=== PATIENT | male | born 1930 | race Caucasian/White ===

== ENCOUNTER 2017-01-27 09:02 | Observation (INO) ==
[2017-01-27] MEDS ORDERED: ASPIRIN PO STA (09:13)
[2017-01-27] MEDS ORDERED: DUONEB (A & A) INH ONE (09:30)
[2017-01-27 10:25] LABS: MANUAL DIFF NEEDED? NO
[2017-01-27 10:30] LABS: BASO% 0.3 % (0.0-0.8); EOS# 0.15 X1000 (0.0-0.7); HEMATOCRIT 35.1 % (42.0-52.0); HEMOGLOBIN 11.5 g/dL (14.0-18.0); IMM GRAN# 0.09 X1000 (0.0-0.04); IMM GRAN% 0.6 % (0.0-0.5); LYMPH# 0.95 X1000 (1.2-3.4); LYMPH% 6.3 % (20.5-51.1); MCH 31.2 PG (27-31); MCHC 32.8 g/dL (33-37); MCV 95.1 FL (81-99); MONO# 1.02 X1000 (0.11-0.59); MONO% 6.8 % (1.7-9.3); MPV 10.8 FL (7.4-10.4); PLT 236 X1000 (130-400); RBC 3.69 XMIL (4.7-6.1)
[2017-01-27] MEDS ORDERED: LASIX IV ONE ×2 (10:35→14:43)
[2017-01-27 10:42] LABS: INR 0.98; PROTIME 10.3 Seconds (9.2-11.7); PTT 24.4 Seconds (22.0-36.0)
[2017-01-27 11:16] LABS: AGAP 15; ALBUMIN 3.5 g/dL (3.5-5.0); ALKALINE PHOSPHATASE 45 U/L (32-122); BUN 18 mg/dL (8-22); CALCIUM 8.5 mg/dL (8.8-10.2); CHLORIDE 96 mmol/L (98-107); COSMO 276; GOT 24 U/L (10-34); GPT 20 U/L (10-44); MAGNESIUM 1.5 mg/dL (1.5-2.7); POTASSIUM 4.1 mmol/L (3.5-5.1); SODIUM 137 mmol/L (136-145); TCO2 26 mmol/L (25-35); TOTAL BILIRUBIN 0.59 mg/dL (0.20-1.00); TOTAL PROTEIN 6.5 g/dL (6.3-8.3)
--- NOTE | 2017-01-27 11:24 | Diag Imaging Result Document ---
PROCEDURE NAME: CHEST-2 VIEWS - 01/27/2017 FRONTAL AND LATERAL CHEST, 2 VIEWS: FINDINGS: Compared to 07/18/2016. The lungs are hyperexpanded. Mild increased AP diameter to the chest. The heart is not enlarged. The vessels are not distended. No pleural effusions. Vascular prominent versus tiny infiltrate in the medial right base. I believe this truly represents the vessels as the appearance has changed little from the prior exam. There is moderate scoliosis. IMPRESSION: Emphysema.
[2017-01-27 11:26] LABS: CK PROFILE 462 U/L (24-204)
[2017-01-27 12:07] LABS: CK INDEX 2.9 (0.0-2.5); CK-MB 13.61 ng/mL (0.0-5.0)
[2017-01-27] MEDS ORDERED: KLOR-CON PO ONE (14:43)
[2017-01-27] MEDS ORDERED: TYLENOL PO PRN (16:36)
[2017-01-27] MEDS ORDERED: DUONEB (A & A) INH SCH (19:30)
--- NOTE | 2017-01-27 19:46 | HISTORY AND PHYSICAL ---
CHIEF COMPLAINT: Shortness of breath. HISTORY OF PRESENT ILLNESS: This 86-year-old white male presents to the emergency room unannounced. States he has been having increasing shortness of breath with minimal exertion for the past several days. The patient relates has been coughing up some thick, green sputum and his oxygen saturation was low at home. The patient came to the emergency room and was found to have an oxygen saturation of 88% on room air. Subsequent workup revealed a chest x-ray more consistent with congestive heart failure, as well as lower extremity edema. He did have an elevated white count. Although he responded to diuresis in the emergency room, he was still short of breath enough to warrant admission. In review the history, the patient states that he had been on a bus trip all week with his yazidism and as a result he had quit taking his Lasix because he did not want to have to urinate on the bus all of the time. PAST MEDICAL HISTORY: 1. Hypertension. 2. Type 2 diabetes on oral hypoglycemic agent. 3. COPD with reactive airway. 4. Gastroesophageal reflux disease. 5. Hyperlipidemia. 6. History of colon polyps. 7. Obesity. 8. Edema. PAST SURGICAL HISTORY: 1. Multiple back surgeries. 2. Infrarenal abdominal aortic aneurysm with graft. 3. Appendectomy. 4. Multiple spinal epidural procedures. SOCIAL HISTORY: The patient is and lives with his . He is a former smoker with 40 pack year history. He is retired. He does not use alcohol. FAMILY HISTORY: Significant for stomach cancer and stroke. REVIEW OF SYSTEMS: Please see history of present illness. The patient states that over the course of the week he developed great difficulty even walking short distances due to shortness of breath. He felt that he was wheezing as well. He does not describe any symptoms consistent with orthopnea. He feels his abdomen is distended as well. He has not had any nausea or vomiting. He has had a mild to moderate cough productive of greenish sputum. He also has similar mucus coming out of his nose. He denied any chest pain or palpitations. He has noted increased swelling in his lower extremities. He has noted no difficulty urinating. His bowel movements have been normal. PHYSICAL EXAMINATION: GENERAL: He is a well-developed, white male, who is moderately tachypneic but alert, oriented, conversive, and appropriate. NECK: Exam does not reveal JVD in the semirecumbent position. HEENT: Sclerae are anicteric. Oral mucosa is adequately hydrated. LUNGS: Show bilateral mild crackles in the bases with some mild end-expiratory wheeze and fair air movement. As stated earlier, he is mild to moderately tachypneic. ABDOMEN: Protuberant and difficult to examine. It appears to have gaseous distention rather than just fluid retention but it is difficult to tell based on his positioning in the bed. GENITOURINARY: Exam unremarkable. EXTREMITIES: He had 2+ edema up to the level of the knee with deep indentations where his socks hit in the mid tibial area. NEUROLOGIC: Cranial nerves are intact. Patient shows no focal motor deficits on observation. LABORATORY: White cell count was 15,000, hematocrit 35.1. BUN 18, creatinine 1.0, glucose 105. Creatine kinase was 462. Troponin was negative. ProBNP was 699. Chest x-ray: The patient's chest x-ray was reviewed and compared to a previous film from July 2016. I really did not see that much difference but it did appear to be consistent with a fluid overload state rather than acute pneumonia. ASSESSMENT AND PLAN: 1. The patient be admitted to the floor. He has already diuresed 1500 mL in the ER but still somewhat short of breath. I plan to give him a 2nd dose of Lasix this afternoon and then let him rest tonight on oxygen. Tomorrow morning I will consult Dr. Tushar Isaac and get another echocardiogram. His last echo was in 2013 and was a somewhat technically limited study but appeared to have a normal ejection fraction with no enlargement of the chambers. He did have borderline pulmonary hypertension on that echo. As far as I am aware, he has not had any ischemic studies. 2. Because of the patient's history of chronic obstructive pulmonary disease and the likelihood of potential exacerbation, I am going to cover him with antibiotics as if he had a community- acquired bronchopneumonia. We will continue with albuterol aerosols and oxygen support. 3. The remainder of home medications will remain as they were previously. I plan to supplement his potassium today and tomorrow as well. cc: Martell Leiva MD
[2017-01-27] MEDS: DOXYCYCLINE PO SCH (20:45)
[2017-01-27] MEDS: RESTORIL PO PRN (22:31)
--- NOTE | 2017-01-28 05:37 | EKG Report ---
Test Performed on : 01/27/2017 09:11:00 AM Test Reason : Chest Pain Blood Pressure : / mmHG Vent. Rate : 078 BPM Atrial Rate : 078 BPM P-R Int : 184 ms QRS Dur : 084 ms QT Int : 374 ms P-R-T Axes : 055 046 046 degrees QTc Int : 426 ms Sinus rhythm. with premature supraventricular complexes. Nonspecific ST abnormality Abnormal ECG No previous ECGs available Unconfirmed Result
[2017-01-28 07:08] LABS: MANUAL DIFF NEEDED? NO
[2017-01-28 07:23] LABS: BASO% 0.4 % (0.0-0.8); EOS# 0.37 X1000 (0.0-0.7); EOS% 3.6 % (0.0-10.0); HEMATOCRIT 34.5 % (42.0-52.0); HEMOGLOBIN 11.3 g/dL (14.0-18.0); IMM GRAN# 0.07 X1000 (0.0-0.04); IMM GRAN% 0.7 % (0.0-0.5); LYMPH# 0.92 X1000 (1.2-3.4); LYMPH% 8.9 % (20.5-51.1); MCHC 32.8 g/dL (33-37); MCV 94.5 FL (81-99); MONO# 0.95 X1000 (0.11-0.59); MONO% 9.2 % (1.7-9.3); MPV 10.6 FL (7.4-10.4); NEUT% 77.2 % (42.2-75.2); PLT 226 X1000 (130-400); RBC 3.65 XMIL (4.7-6.1)
[2017-01-28 07:52] LABS: AGAP 10; BUN 20 mg/dL (8-22); CALCIUM 8.8 mg/dL (8.8-10.2); CHLORIDE 99 mmol/L (98-107); COSMO 284; POTASSIUM 4.1 mmol/L (3.5-5.1); SODIUM 141 mmol/L (136-145); TCO2 32 mmol/L (25-35)
[2017-01-28] MEDS: KLOR-CON PO SCH (10:17)
[2017-01-28] MEDS: DOXYCYCLINE PO SCH ×2 (10:18→20:43)
[2017-01-28] MEDS: LASIX IV SCH (10:18)
[2017-01-28] MEDS: ROCEPHIN 1 GM/NS 1 GM/50 ML IVPB IV SCH (10:19)
[2017-01-28] MEDS ORDERED: SOLU-MEDROL IV ONE (10:29)
--- NOTE | 2017-01-28 12:29 | CONSULTATION ---
DATE OF CONSULTATION: 01/28/2017 REQUESTING PHYSICIAN: Martell Leiva MD REASON FOR CONSULTATION: CHF and wheezing. HISTORY OF PRESENT ILLNESS: Mr. Cuevas is a pleasant 86-year-old male, patient of mine, who presented to the Emergency Room yesterday with the history that he had been out of town and he had left about a week ago on the on a bus heading to [place] where he spent 5 days and came back on 01/25/2017. During those 5 days out of town he did not take his Lasix. He also ate outside and he ate a lot of salty foods. On 01/26/2017, he noted that he was swollen and he was short of breath. He decided to come to the Emergency Room. In the E.R. he was evaluated by physicians and they did a proBNP level that was slightly elevated at 699; normal is 450. One troponin level was done and it was negative. A chest x-ray showed evidence of emphysema. The patient was actively wheezing. He was put on beta agonist and also Lasix. He has diuresed quite a bit. He is feeling much better today, 01/28/2017. His recorded weight in the hospital is 196. At my office when I saw him last time it was also 196 on 12/06/2016. The patient denies having any chest pain. He is still wheezing some. PAST MEDICAL HISTORY: His past history is positive for COPD. We had noted this back in 2013. He has been referred to Dr. Grant who has followed him. He has established the diagnosis of COPD. He is on inhalers. He does have a history of hypertension. He has hyperlipidemia and diabetes mellitus type 2. He has had a recent dobutamine myocardial perfusion stress test done on 10/26/2014 that was negative for ischemia. The patient has had a previous abdominal aortic aneurysm repair. He has gastric reflux. He has hyperlipidemia which is being treated. PAST SURGICAL HISTORY: His surgical history besides the abdominal aneurysm repair includes back surgery. SOCIAL HISTORY: He is . He has children. He is retired. He used to be a smoker. FAMILY HISTORY: Noncontributory. MEDICATIONS: Home medications at this time include the following: Omeprazole 20 mg daily, Flomax 0.4 mg daily, pravastatin 40 mg daily, metformin 500 mg twice a day, furosemide 40 mg daily, Anoro Ellipta inhaler daily, fluticasone inhaler daily, losartan 50 mg daily, albuterol inhaler several times a day, diltiazem 120 mg daily, and azithromycin as directed. ALLERGIES: Negative. REVIEW OF SYSTEMS: Positive for weight gain, dyspnea, wheezes, and back pain. No other important positives. PHYSICAL EXAMINATION: VITAL SIGNS: Blood pressure is 134/71, temperature 98.2, pulse 63, and respirations 15. GENERAL: He is awake, alert, oriented, and in no distress. HEENT: Unremarkable. CHEST: Bilateral wheezes. Diminished breath sounds diffusely. There are end expiratory wheezes noted most audible at the upper lobes. CARDIOVASCULAR: Heart sounds are distant and regular. No gallop or murmur. ABDOMEN: Nontender and soft. No masses. No hepatomegaly. EXTREMITIES: The extremities show decreased pulses. There is 1 to 2+ edema bilaterally. NEUROLOGICAL: He follows commands and moves all extremities. LABORATORY DATA: Blood work today shows a sodium of 141, potassium 4.1, BUN 20, creatinine 1.1, chloride 99, and carbon dioxide 32. Electrocardiogram done at 9:11 a.m. on 01/27/2017 showed sinus rhythm, PVCs, and no acute ischemic changes. IMPRESSION: 1. Patient presenting with increasing dyspnea and findings consistent with exacerbation of chronic obstructive pulmonary disease and also with some degree of fluid retention that raises the concern for diastolic heart failure. The patient has had previous imaging studies of the heart that have shown consistently that his ejection fraction was preserved. This morning they did an echocardiogram and the preliminary report indicates that his ejection fraction is within normal range. 2. History of abdominal aortic aneurysm repair. 3. History of diabetes. 4. History of hypertension. 5. History of being a former smoker. RECOMMENDATIONS: At this point in time I agree with giving him Lasix. I also suggest to treat him as a COPD exacerbation including steroids, beta agonist, and see how he does. I discussed this with Dr. Leiva and with the patient and his and they understand. The patient is anxious about going home right away. I suggested to him to be a little more patent and try to stick around for the next day or two. He will see Dr. Leiva later on today and discuss this. cc: MD Martell Lane MD
--- NOTE | 2017-01-28 16:27 | ECHO REPORT ---
ORDER DATE: 01/28/2017 ECHOCARDIOGRAPHIC MEASUREMENTS: 1. Interventricular septum 1. 2. Left ventricular posterior wall 1. 3. Diastolic diameter 5.3. 4. Left atrium 3.4. 5. Aorta 4. FINDINGS: 1. Normal left ventricular cavity size. Estimated ejection fraction of 60%. Aortic valve leaflets are trileaflet. Mitral valve was normal. Tricuspid valve was normal. Pulmonic valve was normal. 2. Peak velocity across the aortic valve less than 2 meters/second. There is no aortic stenosis. There is aortic sclerosis. 3. There is mild aortic regurgitation. 4. There is mild mitral regurgitation. 5. There is mild tricuspid regurgitation. 6. Peak velocity across the tricuspid valve was 2.9 meters/second. Pulmonary systolic pressure of 43 mmHg. There is trace pulmonary regurgitation. 7. There is no pericardial effusion or obvious intracardiac mass or thrombus seen. cc: MD Martell Cohen MD
[2017-01-28] MEDS: SOLU-MEDROL IV SCH (17:32)
[2017-01-28] MEDS: RESTORIL PO PRN (20:43)
[2017-01-28] MEDS ORDERED: DUONEB (A & A) INH SCH (21:00)
[2017-01-28] MEDS ORDERED: FLOMAX PO SCH (21:00)
[2017-01-28] MEDS ORDERED: PRAVACHOL PO SCH (21:00)
[2017-01-29] MEDS: SOLU-MEDROL IV SCH (00:11)
--- NOTE | 2017-01-29 04:27 | PROGRESS NOTE ---
DATE: 01/28/2017 SUBJECTIVE: The patient states he is breathing much better today. He has diuresed quite a bit overnight. Overall, since coming to the emergency room, he was diuresed somewhere in the neighborhood of 2500 mL but this has not been kept accurately between the emergency room and the floor. I checked the patient down an echocardiogram lab and he was in no distress. OBJECTIVE: Vital Signs: The patient is afebrile. Vital signs are stable. Extremities: The extremities show 1+ edema. Lungs: Lungs have bilateral end-expiratory wheezes with slight increased work of breathing, with no effects of respiratory distress. Cardiovascular: Regular without appreciable murmur or gallop. Abdomen: Protuberant. Neurologic: The patient is alert, oriented, conversive, and appropriate. LABORATORIES: White cell count is 10.3, potassium is 4.1, creatinine 1.1. Echocardiogram with 60% ejection fraction. No significant valvular abnormalities. Normal chamber sizes. ASSESSMENT AND PLAN: 1. The patient's shortness of breath is multifactorial. He clearly has chronic obstructive pulmonary disease and is likely in an exacerbation now. This was made considerably worse by his fluid overload status and skipping his Lasix doses. He has diuresed sufficiently overnight. Still continues to have wheezing. Dr. Tushar Isaac suggestive that at the present his primary component was chronic obstructive pulmonary disease and suggested that we add steroids. By the time of this dictation, the patient had received a dose of steroids and was feeling somewhat better. His breathing has stabilized and he is again very desirous on going home, but I do not feel that he had been on a regimen on a regimen that can be maintained at home. We increased his respiratory treatments to 3 times a day. We will continue his Lasix at present dose. 2. He is being discharged tomorrow. cc: Martell Leiva MD
[2017-01-29 08:00] VITALS: BP 154/96
[2017-01-29] MEDS ORDERED: GLUCOPHAGE PO SCH (08:00)
[2017-01-29] MEDS: DOXYCYCLINE PO SCH (08:44)
[2017-01-29] MEDS: KLOR-CON PO SCH (08:46)
[2017-01-29] MEDS: LASIX IV SCH (08:50)
[2017-01-29] MEDS: ROCEPHIN 1 GM/NS 1 GM/50 ML IVPB IV SCH ×2 (08:51→09:14)
[2017-01-29] MEDS ORDERED: COZAAR PO SCH (09:00)
[2017-01-29] MEDS ORDERED: PREDNISONE PO SCH (09:00)
[2017-01-29] MEDS ORDERED: CARDIZEM CD PO SCH (09:00)
[2017-01-29] MEDS ORDERED: PRILOSEC PO SCH (09:00)
--- NOTE | 2017-01-30 00:55 | DISCHARGE SUMMARY ---
ADMISSION DATE: 01/27/2017 DISCHARGE DATE: 01/29/2017 DISCHARGE DIAGNOSES: 1. Chronic obstructive pulmonary disease, with exacerbation. 2. Acute congestive heart failure, diastolic. 3. Edema. 4. Medical noncompliance. 5. [id number] diabetes mellitus, E11.9. 6. Hypertension. CONSULTATIONS: Tushar Isaac MD. PROCEDURES: Echocardiography. HOSPITAL COURSE: The patient was admitted for fluid overload status and wheezing. He had been noncompliant for the previous week due to a bus trip. He was markedly swollen and short of breath. After large volume diuresis on day 1, he continued to have wheezing, which was more consistent with his COPD. He was started on some steroids and seemed to clear up greatly. He was breathing much better by the time of discharge. At the time of discharge, the only changes in medications were the addition of 20 mg of prednisone daily until he could follow up with me within 1 week. He was also strongly encouraged to take his Lasix 40 every day. We discussed weight loss as well. Followup is within 1 week. During his hospitalization, the patient had an echocardiogram, which showed preserved ejection fraction and chamber sizes. He had mild diastolic dysfunction. cc: Martell Leiva MD
== END 2017-01-29 09:28 | disposition home or self-care (01) ==
LOC: ED 09:02 → 3N 15:44 → INTOOBSV 15:44
PROVIDERS: ADMIT Internal Medicine; ATTEND Internal Medicine

== ENCOUNTER 2017-03-05 09:48 | Inpatient (IN) ==
--- NOTE | 2017-03-05 10:24 | EKG Report ---
Test Performed on : 03/05/2017 10:05:32 AM Test Reason : sob Blood Pressure : / mmHG Vent. Rate : 090 BPM Atrial Rate : 090 BPM P-R Int : 162 ms QRS Dur : 086 ms QT Int : 344 ms P-R-T Axes : 108 047 064 degrees QTc Int : 420 ms Normal sinus rhythm. Nonspecific ST abnormality Abnormal ECG When compared with ECG of 27-JAN-2017 09:11, premature supraventricular complexes. are no longer present Unconfirmed Result
--- NOTE | 2017-03-05 11:46 | Diag Imaging Result Doc PS360 ---
EXAM: CHEST-PORTABLE HISTORY: sob TECHNIQUE: COMPARISON: 01/27/2017 FINDINGS: The lungs are well expanded. The heart is not enlarged. The vessels are not distended. No consolidation. No pleural effusions identified. There is scoliosis. IMPRESSION: Stable chest. Electronically signed by Moisés Jones 03/05/2017 11:44 AM
[2017-03-05 12:03] LABS: URINE CULTURE NEEDED? NO; URINE MICRO REVIEW NEEDED? NO; URINE SOURCE CLEAN CATCH
[2017-03-05 12:08] LABS: BILIRUBIN URINE NEGATIVE (NEGATIVE); BLOOD URINE NEGATIVE (NEGATIVE); COLOR YELLOW; GLUCOSE URINE NEGATIVE (NEGATIVE); LEUKOCYTES URINE NEGATIVE (NEGATIVE); NITRITE URINE NEGATIVE (NEGATIVE); PH URINE 5.5; PROTEIN URINE NEGATIVE (NEGATIVE); TURBIDITY URINE CLEAR (CLEAR); UR EPITHELIAL CELLS <10 /HPF (<10); URINE BACTERIA NEGATIVE /HPF; URINE RBC <10 /HPF (<10); URINE WBC <10 /HPF (<10); UROBILINOGEN URINE NORMAL (NORMAL)
[2017-03-05 12:10] LABS: BASO% 0.2 % (0.0-0.8); HEMATOCRIT 34.3 % (42.0-52.0); HEMOGLOBIN 11.2 g/dL (14.0-18.0); IMM GRAN# 0.09 X1000 (0.0-0.04); IMM GRAN% 0.5 % (0.0-0.5); LYMPH# 0.66 X1000 (1.2-3.4); LYMPH% 3.8 % (20.5-51.1); MANUAL DIFF NEEDED? NO; MCH 30.6 PG (27-31); MCHC 32.7 g/dL (33-37); MCV 93.7 FL (81-99); MONO# 1.73 X1000 (0.11-0.59); MONO% 9.9 % (1.7-9.3); MPV 11.1 FL (7.4-10.4); NEUT% 85.6 % (42.2-75.2); PLT 240 X1000 (130-400); RBC 3.66 XMIL (4.7-6.1)
[2017-03-05 12:20] LABS: ALBUMIN 3.7 g/dL (3.5-5.0); CALCIUM 8.9 mg/dL (8.8-10.2); POTASSIUM 3.8 mmol/L (3.5-5.1); TOTAL BILIRUBIN 0.84 mg/dL (0.20-1.00); TOTAL PROTEIN 7.1 g/dL (6.3-8.3)
[2017-03-05] MEDS ORDERED: DUONEB (A & A) INH ONE (14:00)
[2017-03-05] MEDS ORDERED: SOLU-MEDROL IV ONE (14:01)
--- NOTE | 2017-03-05 15:28 | Diag Imaging Result Doc PS360 ---
EXAM: US ABDOMEN-COMPLETE HISTORY: portal htn? Ascites? TECHNIQUE: Transabdominal COMMENT: The study is technically suboptimal due to poor sonographic window and body habitus. The aorta and pancreas are not well demonstrated. The gallbladder is clear and nontender. There is no evidence of biliary dilatation the common bile duct measuring 5 mm. The spleen is not enlarged. There is antegrade flow in the portal vein. The liver is otherwise unremarkable. No abnormal fluid collections are present. The kidneys are without evidence of hydronephrosis. There is a 1.6 cm cyst in the lower pole of the right kidney. There is some suggestion of cortical atrophy bilaterally. IMPRESSION: No evidence of acute disease. Electronically signed by Richard Theodore 03/05/2017 3:26 PM
[2017-03-05] MEDS ORDERED: LASIX IV ONE (16:11)
[2017-03-05] MEDS ORDERED: ZOFRAN IV PRN (16:12)
[2017-03-05] MEDS ORDERED: TYLENOL PO PRN (16:12)
--- NOTE | 2017-03-05 16:14 | PROVIDER DOCUMENTATION ---
This chart was entered by Marquita Sebastian Scribe, acting as scribe for Joe Husain MD. HPI-Respiratory General - General Chief Complaint: Shortness of Breath Stated Complaint: POSSIBLE FLUID RETENTION/LUNGS Time Seen by Provider: 03/05/17 11:29 Source: patient Allergies/Adverse Reactions: Patient Allergies Allergy/AdvReac Type Severity Reaction Status Date / Time No Known Allergies Allergy Verified 03/05/17 10:50 Home Medications: Home Medication List Medication Instructions Recorded Confirmed Last Taken Type Albuterol Sulfate [Ventolin Hfa] 8 gm IH Q4H PRN 01/27/17 03/05/17 03/05/17 History Diltiazem HCl [Cardizem Cd] 120 mg PO DAILY 01/27/17 03/05/17 03/05/17 History Furosemide [Lasix] 40 mg PO DAILY 01/27/17 03/05/17 03/05/17 History Losartan [Cozaar] 50 mg PO DAILY 01/27/17 03/05/17 03/05/17 History Metformin [Glucophage] 500 mg PO BID CC 01/27/17 03/05/17 03/05/17 History Omeprazole [Prilosec] 20 mg PO DAILY 01/27/17 03/05/17 03/05/17 History PRAVAstatin [Pravachol] 40 mg PO QHS 01/27/17 03/05/17 03/05/17 History Tamsulosin [Flomax] 0.4 mg PO QHS 01/27/17 03/05/17 03/05/17 History Umeclidinium Brm/Vilanterol Tr 1 each IH DAILY 01/27/17 03/05/17 03/05/17 History [Anoro Ellipta 62.5-25 Mcg INH] Doxycycline 100 mg PO BID #10 capsule 01/29/17 03/05/17 03/05/17 Rx - History of Present Illness-Resp Nature of Presenting Problem: PT IS A 86YOM PRESENTING TO THE ED C/O SOB. PT STATES FOR 1 WEEK NOW HE HAS HAD SOB/ COUGH/ CONGESTION/ AND FEVER. TODAY HIS DYSPNEA INCREASED BY JUST WALKING ROOM TO ROOM IN HIS HOME. PT WAS ADMITTED TO HOSP 5 WEEKS PRIOR DUE TO NON- COMPLIANCE OF MEDICATIONS AND TODAY HE STATES TAKING HIS MEDICATION PRESCRIBED BUT STILL HAVING 1+ PITTING EDEMA AND HAS USED HIS NEBULIZER X2 AND MDI X6 THIS AM JUST SKI BASE TRIMMER W/O RESOLUTION FROM SOB. NO OTHER COMPLAINTS AT THIS TIME Quality of Pain: reports: fullness Severity in ED: reports: moderate Onset/Duration: reports: 4 days ago Timing: reports: still present, getting worse Context: reports: recent URI Exposure: reports: unknown cause Cough Quality/Degree: reports: moderate. denies: productive cough Episode Frequency: frequent episodes Current Respiratory Medication Therapy: Initiated see nurses note Modifying Factors: improves with: exertion, lying down, rest Associated Symptoms: reports: cough, fever/chills, hurts to breathe, nasal congestion, nasal drainage, shortness of breath, sinus pain, sore throat, wheezing. denies: chest pain/soreness Similar Symptoms Previously?: Yes Recently seen or treated by another doctor?: No Review of Systems - Adult - REVIEW OF SYSTEMS - ADULT Constitutional: reports: see HPI, chills, fever, fatique. denies: night sweats Eyes: reports: no symptoms reported Ears, Nose, Mouth & Throat: reports: no symptoms reported Cardiovascular: reports: see HPI, edema (1+ BILATERAL PITTING EDEMA). denies: chest pain, syncope Respiratory: reports: see HPI, cough, dyspnea on exertion, shortness of breath, wheezing. denies: excessive sputum production Gastrointestinal: reports: no symptoms reported Genitourinary: reports: no symptoms reported Musculoskeletal: reports: no symptoms reported Integumentary: reports: no symptoms reported Neurological: reports: no symptoms reported Psychiatric: reports: no symptoms reported Endocrine: reports: no symptoms reported Hematologic/Lymphatic: reports: no symptoms reported Allergic/Immunologic: reports: no symptoms reported All Other Systems: Reviewed and Negative Past History - Adult - PAST MEDICAL HISTORY-ADULT Review of Records: reports: Old Records Reviewed, Nursing Assessment Review, Medications Reviewed, Social history reviewed & non-contributory. Major Childhood Illnesses: reports: denies history Cardiovascular: reports: HTN Respiratory: reports: COPD Gastrointestinal: reports: GERD Obstetrical/Gynecological: reports: denies history Genitourinary: reports: denies history Musculoskeletal: reports: denies history Neurological: reports: denies history Endocrine/Immune: reports: Diabetes Other Conditions: reports: denies history - PRIOR SURGERIES/PROCEDURES Surgical/Procedure History: reports: other (AAA repair) - PRIOR HOSPITALIZATIONS Prior Hospitalizations: reports: for similar symptoms - IMMUNIZATION STATUS Childhood Immunizations: See Nurse Assessment Flu Vaccine: See Nurse Assessment - FAMILY HISTORY Family History: reviewed, not pertinent - SOCIAL HISTORY Smoking: denies, non-smoker Substance Use: none/never, denies Alcohol Use Frequency: never Living Situation: family Physical Exam-General - PHYSICAL EXAM-ADULT Initial Vital Signs Reviewed: Yes - CONSTITUTIONAL General Appearance: alert, moderate distress, anxious. negative: appears well, slow to respond - EYES Eyes: PERRL/EOMI, pink conjunctivae - HEAD, EARS, NOSE, MOUTH & THROAT HENMT: normocephalic/atraumatic, moist mucous membranes, normal ENT inspection, TMs normal, pharynx normal - NECK Neck: non-tender, full range of motion, supple, normal inspection - RESPIRATORY Respiratory: chest non-tender, no accessory muscle use, respiratory distress, decreased breath sounds, accessory muscle use, wheezing, dull on percussion, pain on inspiration. negative: lungs clear, normal breath sounds, no pleuratic chest pain, no respiratory distress - CARDIOVASCULAR Cardiovascular: normal peripheral pulses, regular rate, rhythm, no gallop, no JVD, no murmur, other (1+ BILATERAL PITTING EDEMA). negative: no edema - GASTROINTESTINAL (ABDOMEN) Abdominal Exam: normal bowel sounds, non tender, soft, no organomegaly, no pulsatile mass - LYMPHATIC Lymphatic: no adenopathy - MUSCULOSKELETAL Back Exam: normal inspection, no CVA tenderness, no vertebral tenderness Extremity: normal range of motion, non-tender, normal gait, no calf tenderness, normal capillary refill, pelvis stable, swelling. negative: normal inspection, no pedal edema - SKIN Integumentary: normal color, normal turgor, warm/dry - NEUROLOGIC Neurologic: moto mix operator II-XII nml as tested, grossly normal, no motor/sensory deficits - PSYCHIATRIC Psych/Mental Status: normal thought content, normal thought process, oriented x 3, anxious. negative: normal mood/affect Progress - PLAN OF CARE/RESULTS Progress/Plan/Lab Results: Vital Signs - 8 hr 03/05/17 10:05 03/05/17 12:01 03/05/17 12:55 Temperature 100.1 F H Pulse Rate 88 76 70 Respiratory Rate 24 26 H 16 Blood Pressure 135/59 122/68 119/67 O2 Sat by Pulse Oximetry 92 L 93 L 93 L 03/05/17 15:40 Temperature Pulse Rate 78 Respiratory Rate 20 Blood Pressure O2 Sat by Pulse Oximetry 94 L Laboratory Results - last 24 hr 03/05/17 03/05/17 03/05/17 11:10 11:10 12:00 WBC 17.47 H RBC 3.66 L Hgb 11.2 L Hct 34.3 L MCV 93.7 MCH 30.6 MCHC 32.7 L RDW Std Deviation 14.5 Plt Count 240 MPV 11.1 H Immature Gran % (Auto) 0.5 Neut % (Auto) 85.6 H Lymph % (Auto) 3.8 L [place] % (Auto) 9.9 H Eos % (Auto) 0.0 Baso % (Auto) 0.2 Immature Gran # (Auto) 0.09 H Neut # (Auto) 14.95 H Lymph # (Auto) 0.66 L [place] # (Auto) 1.73 H Eos # (Auto) 0.00 Baso # (Auto) 0.04 Sodium 136 Potassium 3.8 Chloride 96 L Carbon Dioxide 26 Anion Gap 14 BUN 18 Creatinine 1.2 Estimated GFR/1.73 m2 58 BUN/Creatinine Ratio 15 Glucose 126 H Calculated Osmolality 275 Calcium 8.9 Total Bilirubin 0.84 AST 23 ALT 16 Alkaline Phosphatase 54 Lzd-N-Pvtgwsqlfos Pept Total Protein 7.1 Albumin 3.7 Globulin 3.4 Albumin/Globulin Ratio 1.1 Urine Source CLEAN CATCH Urine Color YELLOW Urine Turbidity CLEAR Urine pH 5.5 Ur Specific [place] 1.010 Urine Protein NEGATIVE Ur Glucose (Stick) NEGATIVE Ur Ketones (Stick) NEGATIVE Urine Blood NEGATIVE Urine Nitrite NEGATIVE Urine Bilirubin NEGATIVE Urobilinogen Dipstick NORMAL Urine Leukocytes NEGATIVE Urine WBC (Auto) <10 Urine RBC (Auto) <10 U Epithel Cells (Auto) <10 Urine Bacteria (Auto) NEGATIVE 03/05/17 14:19 WBC RBC Hgb Hct MCV MCH MCHC RDW Std Deviation Plt Count MPV Immature Gran % (Auto) Neut % (Auto) Lymph % (Auto) [place] % (Auto) Eos % (Auto) Baso % (Auto) Immature Gran # (Auto) Neut # (Auto) Lymph # (Auto) [place] # (Auto) Eos # (Auto) Baso # (Auto) Sodium Potassium Chloride Carbon Dioxide Anion Gap BUN Creatinine Estimated GFR/1.73 m2 BUN/Creatinine Ratio Glucose Calculated Osmolality Calcium Total Bilirubin AST ALT Alkaline Phosphatase Tnz-D-Opahzmhycsn Pept 578 H Total Protein Albumin Globulin Albumin/Globulin Ratio Urine Source Urine Color Urine Turbidity Urine pH Ur Specific [place] Urine Protein Ur Glucose (Stick) Ur Ketones (Stick) Urine Blood Urine Nitrite Urine Bilirubin Urobilinogen Dipstick Urine Leukocytes Urine WBC (Auto) Urine RBC (Auto) U Epithel Cells (Auto) Urine Bacteria (Auto) Orders Category Date Time Status CHEST-PORTABLE [RAD] Stat Exams 03/05/17 11:30 Completed US ABDOMEN-COMPLETE [US] Stat Exams 03/05/17 13:58 Completed BNP [PRO B-NATRIURETIC PEPTIDE] Stat Lab 03/05/17 14:19 Completed CBC WITH ELECTRONIC DIFF [HEME] Stat Lab 03/05/17 11:10 Completed COMPREHENSIVE METABOLIC PANEL [CHEM] Stat Lab 03/05/17 11:10 Completed UA NIMS W/REFLEX CULT [URINALYSIS] Stat Lab 03/05/17 12:00 Completed Albuterol 2.5MG/Ipratrop 0.5MG [Duoneb (A & A)] Med 03/05/17 14:00 Discontinued 3 ml INH NOW ONE Methylprednisolone Sod Succ [Solu-Medrol] Med 03/05/17 14:01 Discontinued 80 mg IV NOW ONE Aerosol Treatments Routine Oth 03/05/17 14:01 Completed Aerosol Treatments Stat Oth 03/05/17 14:01 Completed EKG [EKG] Stat Ther 03/05/17 10:00 Draft Result Diagrams: 03/05/17 11:10 03/05/17 11:10 - REASSESSMENT Reassessment #1 Status: improving - XRAY 1 XRAY: Bilateral XRAY Study: Chest (STABLE CHEST - HURST) Impression: Normal - CONSULTS/PCP/HOSPITALIST Notification #1 *Consult/PCP/Hospitalist*: Dr Leiva Time Discussed: 16:13 Consult Disposition: Will see in ED Departure - Departure Time of Disposition Decision: 16:06 DIAGNOSIS: COPD (chronic obstructive pulmonary disease) Qualifiers: COPD type: COPD with acute exacerbation Qualified Code(s): J44.1 - Chronic obstructive pulmonary disease with (acute) exacerbation Disposition: ADMITTED INPATIENT 09 Certified Medical Emergency: Emergent Condition: Fair Referrals and Follow-Ups: Martell Leiva MD [Primary Care Provider] - - Critical Care Note This patient required my direct & personal management of CC.: No This chart was documented by the indicated scribe, (Marquita Sebastian, Estella) and accurately reflects the services I performed and decisions made by me, Joe Husain MD, as attested by the provider's signature.
--- NOTE | 2017-03-05 16:14 | ED EKG INTERP ---
This chart was entered by Marquita Sebastian Scribe, acting as scribe for Joe Husain MD. EKG Interpretation - EKG Time of EKG reading by physician:: 10:52 EKG Read and Signed by:: Joe Husain EKG Interpretation (*Must complete 3 of following elements*): Abnormal Rate: 90 Rhythm: NSR [place]: normal QRS: normal ST Wave: non-specific ST changes This chart was documented by the indicated scribe, (Marquita Sebastian Scribe) and accurately reflects the services I performed and decisions made by me, Joe Husain MD, as attested by the provider's signature.
[2017-03-05] MEDS ORDERED: SOLU-MEDROL IV SCH (16:59)
--- NOTE | 2017-03-05 17:12 | HISTORY AND PHYSICAL ---
CHIEF COMPLAINT: Shortness of breath. HISTORY OF PRESENT ILLNESS: This 86-year-old white male had apparently been struggling to breathe for the last week or so. All weekend he was extremely short of breath with exertion and was coughing with production of greenish sputum. He had increased wheezing. For inexplicable reasons he decided to go to the emergency room on Saturday rather than call the office to be evaluated. In the emergency room he was evaluated and found to be tachypneic, queasy, generally short of breath, and unable to move without significant effort. He is admitted for COPD with exacerbation. PAST MEDICAL HISTORY: 1. COPD with frequent exacerbation. 2. Type 2 diabetes, on oral hypoglycemic agent. 3. Hypertension. 4. Gastroesophageal reflux disease. 5. Hyperlipidemia. 6. History of colon polyps. 7. Obesity. 8. Chronic lower extremity edema. PAST SURGICAL HISTORY: 1. The patient has had multiple back surgeries. 2. The patient has an infrarenal abdominal aortic aneurysm. This is approximately 6 cm in diameter. He has received a Y graft. 3. History of appendectomy. 4. Other spinal epidural procedures. SOCIAL HISTORY: Patient is and lives with his . He is a former smoker with at least a 40 pack year history. He is retired. He does not use alcohol. FAMILY HISTORY: Significant for stomach cancer and stroke. REVIEW OF SYSTEMS: Patient states he has been extremely breathless for the last week. He was getting worse over the weekend. Last night he was coughing up thick green sputum and was having difficulty breathing. He states that he did not have fever or chills at home but in the emergency room they had a low-grade fever measured. The patient's last admission from 01/27 was almost identical except for the fact at that time the patient had been noncompliant with his Lasix. On the admission from 03/05 he states that he had been compliant but that his symptoms "felt almost the same." He denied any nausea or vomiting. He has had no chest pain or palpitations. He always complains that his abdomen feels swollen. He has had normal bowel movements and normal urine output otherwise. PHYSICAL EXAMINATION: GENERAL: He is an obese white male, who is in moderate respiratory distress. In general, he is alert, oriented, conversive, and appropriate. He is somewhat hard of hearing so it is difficult to determine sometimes. HEENT: The patient's voice is hoarse. Oral mucosa is adequately hydrated and normal coloration. LUNGS: Show diffuse expiratory wheezing with fair air movement. He is tachypneic. CARDIOVASCULAR: Regular at approximately 90 beats per minute. ABDOMEN: Protuberant. Bowel sounds are present. He is soft and nontender. EXTREMITIES: Trace edema in the lower extremities. NEUROLOGIC: Cranial nerves are intact except for hearing. No focal neurological deficits. LABORATORY: White cell count 17.4, hematocrit 34.3. BUN is 18, creatinine 1.2, glucose 126. ProBNP was 578. Urinalysis was normal. ASSESSMENT AND PLAN: 1. The patient will be admitted to the hospital. Started on 3 times a day aerosol treatments with steroids and antibiotics. I have consulted Dr. Grant for help since he is having frequent exacerbations. It is noted that the patient has not been on any steroids for a number of weeks now. 2. I will continue patient's Lasix. 3. Hypertension is reasonably controlled. We will continue present medications in that regard. 4. Patient will continue to take metformin. Will check blood sugars and apply sliding scale insulin as appropriate. cc: Martell Leiva MD
[2017-03-05] MEDS: GLUCOPHAGE PO SCH (17:25)
[2017-03-05] MEDS: DUONEB (A & A) INH SCH (21:00)
[2017-03-05] MEDS: PRAVACHOL PO SCH (21:23)
[2017-03-05] MEDS: RESTORIL PO SCH (21:23)
[2017-03-05] MEDS: SOLU-MEDROL IV SCH (22:01)
[2017-03-06] MEDS: SOLU-MEDROL IV SCH ×3 (06:10→22:02)
[2017-03-06] MEDS: DUONEB (A & A) INH SCH ×3 (08:01→19:21)
--- NOTE | 2017-03-06 08:41 | PROGRESS NOTE ---
DATE: 03/06/2017 SUBJECTIVE: The patient states that he is subjectively improved this morning. He is still coughing up green phlegm. He is still wheezing, but his overall respiratory status is improved significantly. OBJECTIVE: Vital Signs: Temperature 97.6 degrees, pulse rate 85, blood pressure 131/76, 99% saturated on 2 L nasal cannula. General: In general, the patient is awake, alert, conversive and appropriate. He is not in any respiratory distress. Lungs: Patient has bilateral diffuse expiratory wheeze with [id number] air movement. Cardiovascular: Regular at 85. Extremities: Trace edema in the dependent areas of the leg. LABORATORIES: None. ASSESSMENT AND PLAN: 1. Patient's respiratory status has improved. He is on steroids and aerosol treatments with azithromycin. I plan to add Mucomyst to his aerosol regimen. There is a consult for Dr. Grant placed for this morning. Dr. Grant has seen the patient in his office many times. 2. Hypertension, well controlled. 3. Overall the patient still requires inpatient care until his respiratory status has clinically improved. cc: Martell Leiva MD
[2017-03-06 08:57] LABS: BASO% 0.1 % (0.0-0.8); HEMOGLOBIN 11.7 g/dL (14.0-18.0); IMM GRAN# 0.04 X1000 (0.0-0.04); IMM GRAN% 0.3 % (0.0-0.5); LYMPH# 1.02 X1000 (1.2-3.4); LYMPH% 7.4 % (20.5-51.1); MANUAL DIFF NEEDED? NO; MCH 30.9 PG (27-31); MCHC 33.4 g/dL (33-37); MCV 92.3 FL (81-99); MONO# 0.51 X1000 (0.11-0.59); MONO% 3.7 % (1.7-9.3); MPV 10.4 FL (7.4-10.4); NEUT% 88.5 % (42.2-75.2); PLT 267 X1000 (130-400); RBC 3.79 XMIL (4.7-6.1)
[2017-03-06] MEDS ORDERED: ZITHROMAX PO SCH (09:00)
[2017-03-06 09:10] LABS: AGAP 17; BUN 25 mg/dL (8-22); CALCIUM 9.1 mg/dL (8.8-10.2); CHLORIDE 91 mmol/L (98-107); COSMO 277; POTASSIUM 3.9 mmol/L (3.5-5.1); SODIUM 134 mmol/L (136-145); TCO2 26 mmol/L (25-35)
[2017-03-06] MEDS: MUCOMYST 20% INH SCH ×3 (09:31→19:22)
[2017-03-06] MEDS: COZAAR PO SCH (09:36)
[2017-03-06] MEDS: GLUCOPHAGE PO SCH ×2 (09:36→17:36)
[2017-03-06] MEDS: CARDIZEM CD PO SCH (09:37)
[2017-03-06] MEDS: PRILOSEC PO SCH (09:37)
[2017-03-06] MEDS: LASIX PO SCH (09:37)
[2017-03-06] MEDS: RESTORIL PO SCH (22:02)
[2017-03-06] MEDS: LEVAQUIN PO SCH (22:02)
[2017-03-06] MEDS: PRAVACHOL PO SCH (22:02)
--- NOTE | 2017-03-07 02:53 | CONSULTATION ---
DATE OF CONSULTATION: 03/06/2017 REQUESTING PHYSICIAN: Dr. Leiva. HISTORY OF PRESENT ILLNESS: Mr. Cuevas is an 86-year-old white male with severe COPD, truncal obesity, and gastroesophageal reflux disease, who had a 4-5 day history of increasing shortness of breath, increasing cough productive of green sputum, and dyspnea with any exertion. He denied fevers or chills. He denied chest pain. He denied bowel or bladder changes. The patient was evaluated in the emergency room. His chest x-ray revealed no acute infiltrates. PAST MEDICAL HISTORY: 1. Severe chronic obstructive pulmonary disease. 2. Truncal obesity. 3. Gastroesophageal reflux, without significant reflux symptoms. 4. Peripheral vascular disease, status post abdominal aortic aneurysm and stent placement. 5. Hypertension. 6. Spinal stenosis, with back pain. 7. Diabetes mellitus. 8. Dyslipidemia. SOCIAL HISTORY: Patient smoked approximately 1 pack per day for 45 years. Nonsmoker for several years. No alcohol use. No known exposure to asbestos. No tuberculosis exposure. FAMILY HISTORY: Positive for strokes and unspecified cancer. REVIEW OF SYSTEMS: As noted in the HPI. PHYSICAL EXAMINATION: General: Reveals a well-developed, well-nourished, white male, with truncal obesity. The patient has audible wheezing present. Vital Signs: Blood pressure 142/82, heart rate 81,, respiration rate 20, oxygen saturation 97% on 2 L per nasal cannula. HEENT: Pupils are equal reactive. Oropharynx is clear. Neck: Supple. Chest: Reveals diminished breath sounds bilaterally, with diffuse wheezing. The patient has rhonchi, with cough. Cardiac: Regular rate. Normal S1, normal S2. Abdomen: Obese and soft, and without hepatosplenomegaly. Extremities: Reveal trace edema. LABORATORY STUDIES: White blood count on admission was 17.47. White blood count today is 13.87. Chemistry: Sodium 134, potassium 3.9, chloride 91, bicarbonate 26, BUN 25, creatinine 1.1. Chest x-ray 03/05/2017 reveals hyperinflation. Normal cardiac silhouette. Scoliosis noted in the mid T- spine. IMPRESSION: An 86-year-old with severe chronic obstructive pulmonary disease, with chronic obstructive pulmonary disease exacerbation and dyspnea on any exertion. The patient appears to have an active bronchitis, with green purulent sputum production. RECOMMENDATIONS: 1. Continue steroids and nebulizer treatment, as you are doing. 2. Suggest changing patient to Levaquin, which will cover Gram negatives such as Pseudomonas, along with atypical organisms. I had initially planned on adding ciprofloxacin to the azithromycin, but it automatically switches to Levaquin, and therefore the azithromycin will be discontinued. 3. Will check sputum for drug-resistant pathogens. 4. Gastroesophageal reflux precautions were discussed with the patient and recommended at the time of discharge. 5. Additional recommendations pending hospital course. cc: MD Martell Peterson MD
[2017-03-07] MEDS: SOLU-MEDROL IV SCH ×3 (06:40→21:44)
[2017-03-07] MEDS: DUONEB (A & A) INH SCH ×3 (08:01→21:45)
[2017-03-07] MEDS: MUCOMYST 20% INH SCH ×3 (08:01→21:45)
[2017-03-07] MEDS: PRILOSEC PO SCH (08:26)
[2017-03-07] MEDS: CARDIZEM CD PO SCH (08:26)
[2017-03-07] MEDS: LASIX PO SCH (08:26)
[2017-03-07] MEDS: COZAAR PO SCH (08:26)
[2017-03-07] MEDS: GLUCOPHAGE PO SCH ×2 (08:26→17:17)
--- NOTE | 2017-03-07 08:55 | PROGRESS NOTE ---
DATE: 03/07/2017 SUBJECTIVE: The patient states that he is breathing "fair" this morning. He has been coughing up copious amounts of yellow-greenish sputum. He is still wheezing. OBJECTIVE: Vital signs: 97.9, 74, 20, 128/66. The patient is 95% saturated on 2 L nasal cannula. The patient had a 1000 mL negative fluid balance. Neck: On physical exam there is no JVD. Extremities: There is trace edema in the dependent areas of lower extremities. Lungs: Patient's lungs show generally poor air movement with end-expiratory wheeze. He is tachypneic. ASSESSMENT AND PLAN: 1. The patient's exacerbation of chronic obstructive pulmonary disease asthma persists. He is on steroids. Dr. Grant has been consulted and changed antibiotics. We also added Mucomyst which seems to have increased the patient's sputum output a little bit. I told the patient we would need to stay the course for awhile longer in the hospital because I would like him to be at or approaching his baseline level of respiratory function at the time of discharge. He expressed understanding and willingness to stay until that point. 2. The patient's other medications to remain more or less unchanged. I think we will check a few fingersticks over the next couple days to make sure his prednisone has not blown up his metabolic syndrome, and they will make adjustments as necessary. cc: Martell Leiva MD
[2017-03-07] MEDS: RESTORIL PO SCH (21:44)
[2017-03-07] MEDS: LEVAQUIN PO SCH (21:44)
[2017-03-07] MEDS: PRAVACHOL PO SCH (21:44)
[2017-03-08] MEDS: SOLU-MEDROL IV SCH ×2 (00:36→06:52)
[2017-03-08] MEDS: DUONEB (A & A) INH SCH ×4 (07:39→22:16)
[2017-03-08] MEDS: MUCOMYST 20% INH SCH ×4 (07:55→22:17)
[2017-03-08] MEDS: LASIX PO SCH (08:32)
[2017-03-08] MEDS: CARDIZEM CD PO SCH (08:32)
[2017-03-08] MEDS: PRILOSEC PO SCH (08:32)
[2017-03-08] MEDS: GLUCOPHAGE PO SCH ×2 (08:32→17:28)
[2017-03-08] MEDS: COZAAR PO SCH (08:32)
--- NOTE | 2017-03-08 10:10 | PROGRESS NOTE ---
DATE: 03/08/2017 SUBJECTIVE: The patient states that he is coughing up less material. His wheezing has improved. His overall breath sounds have improved. He continued to have good oxygen saturations. OBJECTIVE: Vital Signs: 98.0, 84, 20, 129/64, 98% saturated on 2 L nasal cannula. Fluid balance is approximately euvolemic. General: Patient has generally poor air movement. He does not have the end-expiratory wheeze that he had yesterday. Cardiovascular: Regular. He is mildly tachypneic. Neurologic: He is alert, oriented, conversive and appropriate. ASSESSMENT AND PLAN: The patient's chronic obstructive pulmonary disease exacerbation seems to be resolving. I am going to change him over to oral prednisone and continue his antibiotics and breathing treatments. I discussed with the patient and his I would likely send him home tomorrow morning with a gentle taper of the steroids and additional antibiotics with resumption of their usual home medication regimen. We will followup the week after and to make adjustments to prednisone taper. I will also write the patient a prescription for home O2. cc: Martell Leiva MD
[2017-03-08] MEDS: PREDNISONE PO SCH (21:18)
[2017-03-08] MEDS: PRAVACHOL PO SCH (21:18)
[2017-03-08] MEDS: RESTORIL PO SCH (21:18)
[2017-03-08] MEDS: LEVAQUIN PO SCH (21:18)
[2017-03-09 07:48] VITALS: BP 155/74
[2017-03-09] MEDS: GLUCOPHAGE PO SCH (07:51)
[2017-03-09] MEDS: LASIX PO SCH (08:03)
[2017-03-09] MEDS: PREDNISONE PO SCH (08:03)
[2017-03-09] MEDS: COZAAR PO SCH (08:03)
[2017-03-09] MEDS: PRILOSEC PO SCH (08:04)
[2017-03-09] MEDS: CARDIZEM CD PO SCH (08:04)
--- NOTE | 2017-03-09 13:33 | DISCHARGE SUMMARY ---
ADMISSION DATE: 03/05/2017 DISCHARGE DATE: 03/09/2017 DISCHARGE DIAGNOSES: 1. Chronic obstructive pulmonary disease with exacerbation. 2. Cough. 3. Wheezing. 4. Hypertension. 5. Noninsulin dependent diabetes mellitus. CONSULTATIONS: Dr. Gregg Grant [facility] COURSE: This is an 86-year-old white male who was admitted with coughing and wheezing. He has had some diastolic congestive failure in the past but did not appear to be fluid overloaded at the present time. He was having cough productive of green sputum and worsening wheezing. He was admitted to the hospital and started on aerosol treatments aggressively as well as antibiotics and steroids. He had a rather slow recovery but at the time of discharge, he was at his baseline air movement which is only fair to poor. He had an absolutely minimal wheeze in the right base but was otherwise clear. He was very eager for discharge. We got the patient a prescription for home oxygen and hopefully keep him out of the hospital. He can wear that at night or as needed. No other medication changes were made. He was sent home with the addition of prednisone 20 mg twice daily until he can see me next week. He also has some antibiotic written for. He is aware that he can call at any time if he becomes worse. cc: Martell Leiva MD
== END 2017-03-09 12:55 | disposition home or self-care (01) ==
LOC: ED 09:48 → 4N 16:38
PROVIDERS: ADMIT Internal Medicine; ATTEND Internal Medicine